=== PATIENT | male | born 1945 | race Caucasian/White ===

== ENCOUNTER 2018-04-21 15:27 | Inpatient (IN) | payer OTHER ==
[~2018-04-21] VITALS: Ht 177.8 cm; Wt 5.0 kg
[2018-04-26] MEDS ORDERED: AMLODIPINE BESY10 MG PO (18:19)
[2018-04-26] MEDS ORDERED: Lantus 1000 UNITS/10 SUBCUTANEO (18:19)
[2018-04-26] MEDS ORDERED: HumaLOG 100 UNIT/1 M SUBCUTANEO ×2 (18:19)
[2018-04-26] MEDS ORDERED: HYDRALAZINE HCL50 MG PO (18:19)
[2018-04-26] MEDS ORDERED: LEVOTHYROXINE125 MCG PO (18:19)
[2018-04-26] MEDS ORDERED: SIMVASTATIN20 MG PO (18:19)
[2018-04-26] MEDS ORDERED: ZOLPIDEM TARTRA10 MG PO (18:19)
[2018-04-26] MEDS ORDERED: TOPROL XL50 M1 PO (18:19)
[2018-04-26] MEDS ORDERED: CARdura 4MG TABLET PO (18:19)
== END 2018-04-26 19:42 | disposition home or self-care (01) | DRG 684 ==
LOC: ER 15:27 → MEDJ 04-22 15:37 → MEDI 04-22 15:37
PROC: 3E0F7GC Introduction of Other Therapeutic Substance into Respiratory Tract, Via Natural or Artificial Opening (ICD-10-PCS; principal; 2018-04-22)
PROC: BT43ZZZ Ultrasonography of Bilateral Kidneys (ICD-10-PCS; 2018-04-22)
PROC: B246ZZZ Ultrasonography of Right and Left Heart (ICD-10-PCS; 2018-04-22)
PROC: 4A12X4Z Monitoring of Cardiac Electrical Activity, External Approach (ICD-10-PCS; 2018-04-22)
DX: N17.8 Other acute kidney failure (principal); E03.8 Other specified hypothyroidism; E11.21 Type 2 diabetes mellitus with diabetic nephropathy; E11.65 Type 2 diabetes mellitus with hyperglycemia; E11.22 Type 2 diabetes mellitus with diabetic chronic kidney disease; I12.9 Hypertensive chronic kidney disease with stage 1 through stage 4 chronic kidney disease, or unspecified chronic kidney disease; N18.1 Chronic kidney disease, stage 1; R80.8 Other proteinuria

== ENCOUNTER 2018-05-22 18:45 | Emergency (ER) | payer OTHER ==
[~2018-05-22] VITALS: Ht 177.8 cm; Wt 104.3 kg
[~2018-05-22 18:45] MED LIST: AMLODIPINE BESY10 MG PO; CARdura 4MG TABLET PO; HYDRALAZINE HCL50 MG PO; HumaLOG 100 UNIT/1 M SUBCUTANEO; LEVOTHYROXINE125 MCG PO; Lantus 1000 UNITS/10 SUBCUTANEO; SIMVASTATIN20 MG PO; TOPROL XL50 M1 PO; ZOLPIDEM TARTRA10 MG PO
[2018-05-22] MEDS ORDERED: GLIPIZIDE10 MG (18:58)
== END 2018-05-22 23:24 | disposition home or self-care (01) ==
LOC: ER 18:45
DX: K58.8 Other irritable bowel syndrome (principal)

== ENCOUNTER 2018-06-11 04:12 | Emergency (ER) | payer OTHER ==
[~2018-06-11] VITALS: Ht 177.8 cm; Wt 103.0 kg
[~2018-06-11 04:12] MED LIST changes: +GLIPIZIDE10 MG
== END 2018-06-11 10:12 | disposition home or self-care (01) ==
LOC: ER 04:12
DX: N39.0 Urinary tract infection, site not specified (principal); N28.9 Disorder of kidney and ureter, unspecified

== ENCOUNTER 2018-06-13 16:07 | Emergency (ER) | payer OTHER ==
[~2018-06-13] VITALS: Ht 177.8 cm; Wt 106.6 kg
== END 2018-06-13 21:58 | disposition home or self-care (01) ==
LOC: ER 16:07
DX: N45.3 Epididymo-orchitis (principal)

== ENCOUNTER 2018-06-23 11:23 | Emergency (ER) | payer OTHER ==
[~2018-06-23] VITALS: Ht 175.3 cm; Wt 104.3 kg
== END 2018-06-23 17:58 | disposition home or self-care (01) ==
LOC: ER 11:23
DX: E11.649 Type 2 diabetes mellitus with hypoglycemia without coma (principal); T38.3X5A Adverse effect of insulin and oral hypoglycemic [antidiabetic] drugs, initial encounter; Y92.89 Other specified places as the place of occurrence of the external cause

== ENCOUNTER 2018-06-28 08:17 | Emergency (ER) | payer OTHER ==
[~2018-06-28] VITALS: Ht 177.8 cm; Wt 99.8 kg
[2018-06-28] MEDS ORDERED: ZITHROMAX TRI-500 MG PO (12:46)
[2018-06-28] MEDS ORDERED: TUSSI PRES-B L120 M1 PO (12:46)
== END 2018-06-28 12:51 | disposition home or self-care (01) ==
LOC: ER 08:17
DX: R10.32 Left lower quadrant pain (principal); R10.31 Right lower quadrant pain; R53.81 Other malaise

== ENCOUNTER 2018-07-25 13:33 | Emergency (ER) | payer OTHER ==
[~2018-07-25] VITALS: Ht 177.8 cm; Wt 98.9 kg
[~2018-07-25 13:33] MED LIST changes: +TUSSI PRES-B L120 M1 PO; +ZITHROMAX TRI-500 MG PO
== END 2018-07-25 21:14 | disposition home or self-care (01) ==
LOC: ER 13:33
DX: R31.0 Gross hematuria (principal); E11.649 Type 2 diabetes mellitus with hypoglycemia without coma; R10.32 Left lower quadrant pain